=== PATIENT | female | born 1970 | race Caucasian/White ===

== ENCOUNTER 2017-12-20 10:04 | Emergency (ER) | payer MEDICARE, MEDICAID ==
[~2017-12-20] VITALS: Ht 147.3 cm; Wt 59.0 kg
[2017-12-20 11:15] LABS: CHLORIDE 106 mEq/L (98-107)
[2017-12-20 12:26] LABS: BASOPHILS % 0.6 % (0.0-2.0); EOSINOPHILS % 1.2 % (0.0-5.0); HEMATOCRIT. 35.8 % (36.0-48.0); HEMOGLOBIN. 11.2 g/dL (12.0-16.0); LYMPHOCYTES % 13.9 % (20.0-50.0); MEAN CORPUSCULAR HEMOGLOBIN 20.3 pg (28.0-32.0); MEAN CORPUSCULAR VOLUME 65.1 fL (81.0-99.0); MEAN PLATELET VOLUME 8.9 fl (7.4-10.4); MONOCYTES % 8.1 % (2.0-8.0); NEUTROPHILS % 76.2 % (40.0-76.0); PLATELET 232 x1000/uL (130-400); RED BLOOD CELL COUNT 5.49 mill/uL (4.2-5.4); RED CELL DISTRIBUTION WIDTH 16.3 % (11.6-14.6)
[2017-12-20 12:48] LABS: PLATELET ESTIMATE NORMAL
[2017-12-20] MEDS ORDERED: ACETAMINOPHEN 325MG TABLET PO ONE (13:30)
[2017-12-20 13:45] VITALS: BP 134/65
== END 2017-12-20 13:46 | disposition home or self-care (01) ==
LOC: ER 10:04
DX: M25.562 Pain in left knee (principal); M25.561 Pain in right knee; R00.2 Palpitations; E03.9 Hypothyroidism, unspecified; D64.9 Anemia, unspecified; F84.0 Autistic disorder; Z88.0 Allergy status to penicillin
CPT/HCPCS: 36415; 71045; 73560; 80053; 83880; 84443; 84484; 85025; 93005; 99285; L1830

== ENCOUNTER 2019-08-15 12:37 | Emergency (ER) | payer BC, MEDICAID ==
[~2019-08-15] VITALS: Ht 147.3 cm; Wt 77.0 kg
[2019-08-15 14:25] VITALS: BP 132/80
== END 2019-08-15 14:30 | disposition home or self-care (01) ==
LOC: ER 13:36
DX: J06.9 Acute upper respiratory infection, unspecified (principal); E03.9 Hypothyroidism, unspecified; H54.8 Legal blindness, as defined in USA; D64.9 Anemia, unspecified; Z88.0 Allergy status to penicillin
CPT/HCPCS: 71045; 99283

== ENCOUNTER 2020-11-03 12:57 | Emergency (ER) | payer BC, MEDICAID ==
[~2020-11-03] VITALS: Ht 162.6 cm; Wt 70.0 kg
[2020-11-03 13:29] VITALS: BP 135/76
[2020-11-03] MEDS ORDERED: DIPHENHYDRAMINE 25MG CAPSULE PO ONE (13:30)
[2020-11-03] MEDS ORDERED: AMLO5TAB88 MT (15:40)
== END 2020-11-03 15:52 | disposition home or self-care (01) ==
LOC: ER 13:26
DX: T78.3XXA Angioneurotic edema, initial encounter (principal); D64.9 Anemia, unspecified; I10 Essential (primary) hypertension; E03.9 Hypothyroidism, unspecified; X58.XXXA Exposure to other specified factors, initial encounter
CPT/HCPCS: 99283; Q0163

== ENCOUNTER 2021-03-10 10:08 | Emergency (ER) | payer MEDICARE, MEDICAID ==
[~2021-03-10] VITALS: Ht 154.9 cm; Wt 78.0 kg
[~2021-03-10 10:08] MED LIST: AMLO5TAB88 MT
[2021-03-10] MEDS ORDERED: MORPHINE SULFATE 4 MG/ML CPJ (NOT FOR IM USE) IV STA (11:35)
[2021-03-10] MEDS ORDERED: ONDANSETRON HCL 4MG/2ML INJ IV STA (11:35)
[2021-03-10 11:41] LABS: EOSINOPHILS % 1.7 % (0.0-5.0); HEMATOCRIT. 40.3 % (36.0-48.0); HEMOGLOBIN. 14.4 g/dL (12.0-16.0); LYMPHOCYTES % 17.6 % (20.0-50.0); MEAN CORPUSCULAR HEMOGLOBIN 26.6 pg (28.0-32.0); MEAN CORPUSCULAR VOLUME 74.7 fL (81.0-99.0); MEAN PLATELET VOLUME 9.3 fl (7.4-10.4); MONOCYTES % 5.6 % (2.0-8.0); NEUTROPHILS % 74.1 % (40.0-76.0); PLATELET 223 x1000/uL (130-400); RED CELL DISTRIBUTION WIDTH 14.2 % (11.6-14.6)
[2021-03-10] MEDS ORDERED: ACETAMINOPHEN 325MG TABLET PO ONE (11:45)
[2021-03-10] MEDS ORDERED: SODIUM CHLORIDE 0.9% 1,000 ML IV ONE (11:45)
[2021-03-10 11:46] LABS: CHLORIDE 107 mEq/L (98-107)
[2021-03-10 11:51] LABS: C REACTIVE PROTEIN QUANT 1.6 mg/L (0.0-3.0)
[2021-03-10 11:54] LABS: CREATINE KINASE 37 IU/L (26-192); D-DIMER 0.2 mg/L FEU (<0.50); PROTHROMBIN TIME 11.1 sec (9.6-11.0)
[2021-03-10 12:16] LABS: CLARITY URINE CLEAR (CLEAR); COLOR URINE YELLOW (YELLOW); KETONES URINE NEGATIVE (NEGATIVE); LEUKOCYTE ESTERASE URINE NEGATIVE (NEGATIVE); NITRITE URINE NEGATIVE (NEGATIVE); OCCULT BLOOD URINE NEGATIVE (NEGATIVE); PROTEIN URINE NEGATIVE (NEGATIVE); SPECIFIC GRAVITY URINE 1.006 (1.005-1.030); UROBILINOGEN URINE 0.2 E.U./dL (0.2-1.0)
[2021-03-10 15:14] VITALS: BP 150/88
== END 2021-03-10 15:16 | disposition home or self-care (01) ==
LOC: ER 10:08
DX: B34.9 Viral infection, unspecified (principal); I10 Essential (primary) hypertension; Z88.0 Allergy status to penicillin; Z20.822 Contact with and (suspected) exposure to COVID-19
CPT/HCPCS: 36415; 71045; 80053; 81003; 82550; 82728; 83605; 83615; 83880; 84145; 84484; 85025; 85379; 85384; 85610; 86140; 87040; 87086; 87426; 93005; 96374; 99285; J2270; J2405; J7030

== ENCOUNTER 2022-09-24 11:01 | Emergency (ER) | payer MEDICARE, MEDICAID ==
[~2022-09-24] VITALS: Ht 149.9 cm; Wt 74.0 kg
[2022-09-24 11:17] VITALS: BP 136/75
[2022-09-24] MEDS ORDERED: ACETAMINOPHEN 325MG TABLET PO ONE (12:15)
[2022-09-24] MEDS ORDERED: TOPUD MT (14:40)
[2022-09-24] MEDS ORDERED: IBUP-1523 MT (14:40)
== END 2022-09-24 15:11 | disposition home or self-care (01) ==
LOC: ER 11:33
DX: H54.7 Unspecified visual loss (principal); I10 Essential (primary) hypertension; Z88.0 Allergy status to penicillin
CPT/HCPCS: 71045; 73030; 73562; 81025; 99284

== ENCOUNTER 2023-02-04 20:30 | Emergency (ER) | payer MEDICAID, MEDICARE ==
[~2023-02-04] VITALS: Ht 162.6 cm; Wt 68.0 kg
[~2023-02-04 20:30] MED LIST changes: +IBUP-1523 MT; +TOPUD MT
[2023-02-04 20:31] VITALS: O2SAT 98
[2023-02-05 00:46] LABS: BASOPHILS % 1.3 % (0.0-2.0); DIFFERENTIAL COMMENT 0; HEMATOCRIT. 42.4 % (36.0-48.0); HEMOGLOBIN. 13.6 g/dL (12.0-16.0); LYMPHOCYTES % 21.2 % (20.0-50.0); MEAN CORPUSCULAR HEMOGLOBIN 24.5 pg (28.0-32.0); MEAN CORPUSCULAR HGB CONC 32.1 g/dL (31.0-37.0); MEAN CORPUSCULAR VOLUME 76.3 fL (81.0-99.0); MEAN PLATELET VOLUME 9.5 fl (7.4-10.4); NEUTROPHILS % 67.5 % (40.0-76.0); PLATELET 268 x1000/uL (130-400); RED BLOOD CELL COUNT 5.56 mill/uL (4.2-5.4)
[2023-02-05 00:49] LABS: CHLORIDE 103 mEq/L (98-107); INDEX HEMOLYSI 1 (1-3); INDEX ICTERIC 1 (1-4); INDEX LIPEMIC 1 (1-3); POTASSIUM 4.1 mEq/L (3.5-5.1); SODIUM 137 mEq/L (136-145)
[2023-02-05 01:04] LABS: ALANINE AMINOTRANSFERASE 39 IU/L (13-61); ALBUMIN 4.3 g/dL (3.4-5.0); ASPARTATE AMINOTRANSFERASE 19 IU/L (15-37); BILIRUBIN TOTAL 0.6 mg/dL (0.1-1.0); CALCIUM 9.2 mg/dL (8.5-10.1); CARBON DIOXIDE 27 mEq/L (21-32); CREATININE 0.6 mg/dL (0.6-1.3); GLUCOSE 104 mg/dL (70-105); PROTEIN TOTAL 7.7 g/dL (6.0-8.3); TROPONIN I HIGH SENSITIVITY 4 ng/L (<54); UREA NITROGEN BLOOD 14 mg/dL (7-21)
[2023-02-05 01:13] VITALS: BP 128/69; PULSE 73; RESP 18; TEMP 98.9
== END 2023-02-05 01:16 | disposition home or self-care (01) ==
LOC: ER 20:30
DX: F41.9 Anxiety disorder, unspecified (principal); I10 Essential (primary) hypertension; Z88.0 Allergy status to penicillin; Z88.8 Allergy status to other drugs, medicaments and biological substances
CPT/HCPCS: 36415; 80053; 84484; 85025; 93005; 99284